=== PATIENT | male | born 1985 | race Two or more races ===

== ENCOUNTER 2020-05-04 15:12 | Emergency (ER) | payer SELFPAY ==
[~2020-05-04] VITALS: Ht 167.6 cm; Wt 70.3 kg
--- NOTE | 2020-05-04 15:20 | NUR ---
, from [facility], c/o headache 1 hr REGISTERED NURSE MATERNITY 8/10 pain scale. Patient a/ox3, breathing even and unlabored, no sob noted. Noted with multiple scratches and scab wounds on bilateral arms.
[2020-05-04] MEDS ORDERED: ACETAMINOPHEN ES 500 MG TABLET PO ONE (15:30)
[2020-05-04] MEDS ORDERED: IV NS 0.9% 1,000 ML BAG IV ONE (15:30)
[2020-05-04] MEDS ORDERED: SUMATRIPTAN SUCCINATE 6 MG/0.5 ML VIAL SQ ONE ×2 (15:30→15:47)
[2020-05-04] MEDS ORDERED: METOCLOPRAMIDE HCL 10 MG/2 ML VIAL IV ONE (15:30)
[2020-05-04] MEDS ORDERED: ACETAMINOPHEN ES 500 MG TABLET ONE (15:48)
[2020-05-04] MEDS ORDERED: METOCLOPRAMIDE HCL 10 MG/2 ML VIAL ONE (15:48)
--- NOTE | 2020-05-04 16:01 | NUR ---
IV LINE ESTABLISHED, MEDICATIONS PROVIDED.
--- NOTE | 2020-05-04 17:10 | NUR ---
IV removed. Catheter intact and site benign. Pressure and 4x4 applied to site. No bleeding noted.
--- NOTE | 2020-05-04 17:17 | NUR ---
PATIENT PROVIDED FOOD. CLOTHING PROVIDED. Patient given written and verbal discharge instructions. Patient verbalizes understanding of instructions. Patient is ambulatory with steady gait. Refuses offer of assisted placement. Patient given list of available shelters in surrounding area.
[2020-05-04 17:34] VITALS: BP 109/70
== END 2020-05-04 17:34 | disposition home or self-care (01) ==
LOC: ER 15:18
DX: R51.9 Headache, unspecified (principal); F20.9 Schizophrenia, unspecified; F31.9 Bipolar disorder, unspecified
CPT/HCPCS: 70450; 96361; 96372; 96374; 99285; J2765; J3030; J7030

== ENCOUNTER 2021-03-20 17:31 | Emergency (ER) | payer MEDICAID ==
[~2021-03-20] VITALS: Ht 167.6 cm; Wt 68.0 kg
--- NOTE | 2021-03-20 18:34 | NUR ---
SEEN BY ALBINO MIRELES,AWAITING FURTHER ORDERS,URINE SPECIMEN REQUESTED
[2021-03-20] MEDS ORDERED: OLANZAPINE 5 MG TABLET PO ONE (19:00)
[2021-03-20] MEDS ORDERED: LORAZEPAM 1 MG TABLET PO ONE (19:00)
--- NOTE | 2021-03-20 19:05 | NUR ---
PT BIBSELF C/O HEARING VOICES, PT DENIES WANTING TO HURT HIMSELF OR OTHERS. PT STATES THAT THE VOICES ARE TELLING HIM TO "HURRY UP BECAUSE SOMETHING IS GOING TO HAPPEN". PT ATTACHED TO MONITOR AND POX. WILL CONTINUE TO MONITOR
[2021-03-20] MEDS ORDERED: OLANZAPINE 5 MG TABLET ONE (19:07)
[2021-03-20] MEDS ORDERED: LORAZEPAM 1 MG TABLET ONE (19:07)
--- NOTE | 2021-03-20 19:07 | NUR ---
covid swab sent to lab
[2021-03-20 19:13] LABS: BILIRUBIN,URINE NEGATIVE (NEGATIVE); COLOR,URINE YELLOW (YELLOW); LEUKOCYTE ESTERASE ,URINE NEGATIVE (NEGATIVE); NITRITE, URINE NEGATIVE (NEGATIVE); PH,URINE 8.5 (5.0-8.0); PROTEIN,URINE NEGATIVE (NEGATIVE); UGLUCOSE NEGATIVE (NEGATIVE); UROBILINOGEN,URINE 0.2 EU/dL (0.2)
[2021-03-20 19:22] LABS: BACTERIA,URINE None seen /HPF (None Seen); RBC,URINE 21-50 /HPF (0-2); WBC,URINE 0-2 /HPF (0-3)
[2021-03-20 19:23] LABS: SQUAMOUS EPITHELIAL CELL,UR 0-2 /HPF (None Seen); URINE AMORPHOUS PHOSPHATES Moderate /HPF (None Seen)
[2021-03-20 19:45] LABS: BASOPHILS # (AUTO) 0.1 K/uL (0.0-0.2); BASOPHILS % (AUTO) 1.3 % (0.0-2.0); EOSINOPHILS % (AUTO) 4.7 % (0.0-6.0); HEMATOCRIT 38 % (39-51); HEMOGLOBIN 12.6 g/dL (13.5-17.5); LYMPHOCYTES # (AUTO) 1.1 K/uL (0.8-4.8); LYMPHOCYTES % (AUTO) 18.6 % (20.0-44.0); MEAN CORPUSCULAR HGB CONC 34 g/dl (31.0-36.0); MEAN CORPUSCULAR VOLUME 89 fL (80-96); MONOCYTES # (AUTO) 0.4 K/uL (0.1-1.30); MONOCYTES % (AUTO) 7.5 % (2.0-12.0); NEUTROPHILS % (AUTO) 67.9 % (43.0-81.0); PLATELET COUNT (AUTO) 257 K/uL (150-450); RED BLOOD CELL COUNT(AUTO) 4.21 MIL/uL (4.5-6.0); WHITE BLOOD COUNT (AUTO) 5.9 K/uL (4.3-11.0)
[2021-03-20 20:40] LABS: ACETAMINOPHEN 0 ug/ml (10-30); ALANINE AMINOTRANSFERASE 24 U/L (12-78); ALBUMIN 3.6 g/dL (3.4-5.0); ALKALINE PHOSPHATASE 59 U/L (46-116); ASPARTATE AMINOTRANSFERASE 21 U/L (15-37); BILIRUBIN,DIRECT 0.1 mg/dL (0.0-0.2); BILIRUBIN,TOTAL 0.2 mg/dL (0.2-1.0); CALCIUM, SERUM 8.6 mg/dL (8.5-10.1); CARBON DIOXIDE 29 mmol/L (21-32); CHLORIDE 103 mmol/L (98-107); CREATININE 1.2 mg/dL (0.6-1.3); GLUCOSE 139 mg/dL (74-106); POTASSIUM 3.4 mmol/L (3.5-5.1); SODIUM SERUM 142 mmol/L (136-145); TOTAL PROTEIN, SERUM 6.5 g/dL (6.4-8.2); UREA NITROGEN, BLOOD 17 mg/dL (7-18)
[2021-03-20 20:41] LABS: ALCOHOL, BLOOD < 10 mg/dL (0-0)
[2021-03-20] MEDS ORDERED: POTASSIUM CHLORIDE 20 MEQ TAB.PRT.SR PO ONE ×2 (21:00→21:26)
--- NOTE | 2021-03-20 22:36 | NUR ---
DANYEL SWAIN FOR PSYCH EVAL. MADE AWARE OF PATIENT.
--- NOTE | 2021-03-20 23:33 | NUR ---
BRYNN MILLAN AT [facility] SIDE
--- NOTE | 2021-03-21 00:45 | NUR ---
PT ATTACHED TO MONITOR AND POX. VSS
--- NOTE | 2021-03-21 01:50 | NUR ---
Patient is resting comfortably in bed with eyes closed. Easily aroused. VSS
--- NOTE | 2021-03-21 02:15 | NUR ---
pt attached to monitor and pox.vss
--- NOTE | 2021-03-21 03:15 | NUR ---
Patient is resting comfortably in bed with eyes closed. Easily aroused. VSS
[2021-03-21 05:15] VITALS: BP 121/88
--- NOTE | 2021-03-21 05:30 | NUR ---
Patient discharged to home in stable condition. Written and verbal after care instructions given. Patient verbalizes understanding of instruction. Pt ambulatory with a steady gait
== END 2021-03-21 05:30 | disposition home or self-care (01) ==
LOC: ER 17:34 → EDBD 17:34 → ER 03-21 05:30
DX: F29 Unspecified psychosis not due to a substance or known physiological condition (principal); F31.9 Bipolar disorder, unspecified; F20.9 Schizophrenia, unspecified; Z91.14 Patient's other noncompliance with medication regimen; Z20.822 Contact with and (suspected) exposure to COVID-19; D64.9 Anemia, unspecified; E87.6 Hypokalemia; F41.9 Anxiety disorder, unspecified
CPT/HCPCS: 36415; 80048; 80076; 80143; 80307; 80320; 81001; 85025; 87426; 99285; C9803; G0480